=== PATIENT | female | born 1960 | race Caucasian/White ===

== ENCOUNTER → 2024-02-18 12:20 | Outpatient (REF) | payer MEDICARE, OTHER, SELFPAY | LOC: HWRAD 12:20 | PROVIDERS: ATTENDING PHYSICIAN Specialist; FAMILY PHYSICIAN Internal Medicine | DX: N20.1 Calculus of ureter (principal) | CPT/HCPCS: 74176 ==

== ENCOUNTER → 2024-03-05 10:00 | Day surgery (SDC) | payer MEDICARE, OTHER, SELFPAY ==
[2024-03-05 11:33] LABS: Hematocrit 44.8 % (37.0-47.0); Hemoglobin 14.8 g/dL (12.0-16.0); Mean Corpuscular Hgb 29.7 pg (27.0-31.0); Mean Corpuscular Volume 89.8 fL (81.0-99.0); Mean Platelet Volume 10.7 fL (7.4-10.4); Platelet Count 299 10^3/uL (130-400); Red Blood Cell Count 4.99 10^6/uL (4.20-5.40); White Blood Cell Count 7.7 10^3/uL (4.8-10.8)
[2024-03-05 12:26] LABS: Blood Urea Nitrogen 20 mg/dl (7-17); Calcium 9.5 mg/dl (8.4-10.2); Carbon Dioxide 27 mmol/L (22-30); Chloride 100 mmol/L (98-107); Glucose 85 mg/dl (70-99); Potassium 4.4 mmol/L (3.5-5.1); Sodium 137 mmol/L (135-145); eGFR > 60.00
== END ==
LOC: SDSPAT 10:00
PROVIDERS: ATTENDING PHYSICIAN Specialist; FAMILY PHYSICIAN Internal Medicine
DX: Z01.810 Encounter for preprocedural cardiovascular examination (principal); Z01.812 Encounter for preprocedural laboratory examination
CPT/HCPCS: 93005; 36415; 80048; 85027

== ENCOUNTER 2024-03-20 06:34 | Day surgery (SDC) | payer MEDICARE, OTHER, SELFPAY ==
[2024-03-05 12:32] VITALS: BMI 32.6
[2024-03-20] VITALS (11 sets, daily range): BP systolic 139–190; BP diastolic 73–108; BMI 32.6
[2024-03-20] MEDS: DILAUDID 0.25 MG IV (09:38)
[2024-03-20] MEDS: ZOFRAN 4 MG IV (09:58)
[2024-03-20] MEDS: FLOMAX PO (11:34)
[2024-03-20] MEDS: FLOMAX 0.4 MG PO (11:54)
== END 2024-03-20 12:00 | disposition home or self-care (01) ==
LOC: SDS 06:34
PROVIDERS: ATTENDING PHYSICIAN Specialist; FAMILY PHYSICIAN Internal Medicine
DX: N20.0 Calculus of kidney (principal)
CPT/HCPCS: 52356; 74018; 76000; C2617

== ENCOUNTER 2025-03-09 10:38 | Inpatient (IN) | payer MEDICARE, OTHER, SELFPAY ==
[2025-03-09] VITALS (23 sets, daily range): BP systolic 137–187; BP diastolic 68–117; BMI 36.8
--- NOTE | 2025-03-09 04:27 | ED.GENMED ---
History of Present Illness
<Pedro Armstrong DO, Resident - Last Filed: 03/12/25 08:27>
General
Chief Complaint: Flank Pain
Source: patient
Exam Limitations: none
Time Seen by Provider: 03/09/25 04:03
Nursing documentation reviewed up to this point in time: agreed with
History of Present Illness
History of Present Illness:
Vianca Toney is a 64F w/ PMHx nephrolithiasis with most recent episode in March of 2024 treated with right sided ureteroscopy and lithotripsy w/ stenting. Patient states that she started to experience L flank pain at approximately 1800 last
night. The pain is in the left flank and radiates around into the left inguinal area. She originally used a heating pad and Tylenol which helped the pain, but it returned after a couple of hours. Pain is described as constant. States the pain is
similar to past episodes. Also endorses occasional nausea with one episode of small volume vomitus. Denies fevers, abdominal pain, constipation, diarrhea, blood in urine, changes in urinary frequency or recent UTIs.
Past History
<Pedro Armstrong DO, Resident - Last Filed: 03/12/25 08:27>
Past History
ED Past Medical History: None and Other (Migraine headaches, torn meniscus, shoulder tendinitis)
ED Past Surgical History: None
Social History
Tobacco: Non-smoker
Alcohol: None
Family History
Family History: Other (Her mother had a stroke. Her brother of coronary disease)
Review of Systems
<Pedro Armstrong DO, Resident - Last Filed: 03/12/25 08:27>
Review of Systems
Allergies reviewed?: Yes
All Other Systems: ROS reviewed and negative except as documented in HPI and ROS
Phy Exam
<Pedro Armstrong DO, Resident - Last Filed: 03/12/25 08:27>
Physical Exam
Physical Exam:
General: Well developed, well nourished female in moderate discomfort.
HEENT: normocephalic, atraumatic, sclera anicteric, EOMI.
CV: S1,S2 RRR, no m/r/g
Resp: CTAB, no wheezing, rales, rhonchi
Abdomen: soft, nontender to palpation in all 4 quadrants, but mildly tender to palpation in the left inguinal area.
: Left CVA tenderness.
MSK: No clubbing no cyanosis, no edema.
Neuro: Awake, alert, oriented.
Psych: Calm, normal affect.
Scores
<Pedro Armstrong DO, Resident - Last Filed: 03/12/25 08:27>
Heart Failure Risk
Heart Failure Risk Score: Not Applicable
Heart Score for Chest Pain Patients
STEMI patient?: Not applicable
Withdrawal Assessment of Alcohol
Withdrawal Assessment Completed?: Not applicable
Course
<Pedro Armstrong DO, Resident - Last Filed: 03/12/25 08:27>
Orders/Labs/Results
Orders:
Orders
03/09/25 04:49
CT Abd/pel Without Iv Or Oral Urgent
Comment:
Reason For Exam: Left Flank Pain
Ketorolac [Toradol] 15 mg IV NOW STA
03/09/25 04:57
CMP [Comprehensive Metabolic Panel] Urgent
Complete Blood Count/With Diff Urgent
Urinalysis Reflex To Culture Urgent
Date Specimen was Collected: 03/09/25
Time Specimen was Collected: 04:55
Urine Microscopic Reflex Cult Urgent
Urine Culture Urgent
CHANDRA Source: U
Specimen Description:
Date Specimen was Collected: 03/09/25
Time Specimen was Collected: 04:55
03/09/25 08:48
Morphine Sulfate 6 mg IV NOW STA
03/09/25 10:03
CeFAZolin 1 GRAM [Ancef] 1 gram in 5 ml IV NOW
03/09/25 10:21
Admit/Transfer Patient As Directed
Co-Sign Provider:
Level of Care: Inpatient admission
Assign to:: Medical/Surgical
Physician / Group: Gene
Diagnosis: Obstructing left renal stone with intractable pain and GI symptoms
Reason for Hospitalization: See progress note
Expected length of stay greater than two midnights?: Yes
ELOS- Estimated Length of Stay in days: 2
I certify the patient meets the requirements for IP care: Yes
PRN Pain Medication Management As Directed
May give lesser potent ordered pain med per pt: Yes
preference::
Protocol:: Medication orders for pain may be administered in a
manner that supports deferring to patient preference
when the pt is:
- Requesting an ordered lesser potent pain medication.
Least to most potent pain medications are defined
as: acetaminophen < NSAID < tramadol < opioids
(morphine, oxycodone, hydromorphone).
- Requesting a lesser dose of the same medication IF
ORDERED.
- Requesting a less intrusive route of administration
if both routes are prescribed by the provider (PO <
IV).
03/09/25 10:22
Code Status As Directed
Resuscitation Status: Full Code
03/09/25 11:00
Flush (0.9% Sodium Chloride) [Flush (Nss)] See Dose Instructions IV PER PROTOCOL
Abnormal Lab Results
03/09/25
04:57
WBC 11.0 H 10^3/uL
(4.8-10.8)
Absolute Lymphs (auto) 3.6 H 10^3/uL
(1.2-3.4)
Absolute Monos (auto) 0.9 H 10^3/uL
(0.1-0.6)
BUN 21 H mg/dl
(7-17)
Glucose 124 H mg/dl
(70-99)
Total Protein 8.4 H g/dl
(6.3-8.2)
Ur Occult Blood Reflex 4+ A
(Negative)
Urine RBC >100 A /HPF
(0-2)
Urine WBC (Reflex) 11-15 A /HPF
(0-5)
Urine Bacteria (Reflex) Few A
(Negative)
Urine Albumin (Reflex) 2+ A
(Neg - Trace)
03/09/25 04:57
03/09/25 04:57
Vital Signs
Initial and Last Documented VS:
Initial Vital Signs
Temp Pulse Resp BP Pulse Ox
98.7 F 90 22 165/117 97
03/09/25 03:54 03/09/25 03:54 03/09/25 03:54 03/09/25 03:54 03/09/25 03:54
Last Documented Vital Signs
Temp Pulse Resp BP Pulse Ox
97.6 F 96 18 159/86 92
03/09/25 16:30 03/09/25 17:00 03/09/25 17:00 03/09/25 17:00 03/09/25 17:00
<Ortiz Penaloza, DO - Last Filed: 03/09/25 05:32>
Orders/Labs/Results
Orders:
Orders
03/09/25 04:49
CT Abd/pel Without Iv Or Oral Urgent
Comment:
Reason For Exam: Left Flank Pain
Ketorolac [Toradol] 15 mg IV NOW STA
03/09/25 04:57
CMP [Comprehensive Metabolic Panel] Urgent
Complete Blood Count/With Diff Urgent
Urinalysis Reflex To Culture Urgent
Date Specimen was Collected: 03/09/25
Time Specimen was Collected: 04:55
Urine Microscopic Reflex Cult Urgent
Urine Culture Urgent
CHANDRA Source: U
Specimen Description:
Date Specimen was Collected: 03/09/25
Time Specimen was Collected: 04:55
03/09/25 08:48
Morphine Sulfate 6 mg IV NOW STA
03/09/25 10:03
CeFAZolin 1 GRAM [Ancef] 1 gram in 5 ml IV NOW
03/09/25 10:21
Admit/Transfer Patient As Directed
Co-Sign Provider:
Level of Care: Inpatient admission
Assign to:: Medical/Surgical
Physician / Group: Gene
Diagnosis: Obstructing left renal stone with intractable pain and GI symptoms
Reason for Hospitalization: See progress note
Expected length of stay greater than two midnights?: Yes
ELOS- Estimated Length of Stay in days: 2
I certify the patient meets the requirements for IP care: Yes
PRN Pain Medication Management As Directed
May give lesser potent ordered pain med per pt: Yes
preference::
Protocol:: Medication orders for pain may be administered in a
manner that supports deferring to patient preference
when the pt is:
- Requesting an ordered lesser potent pain medication.
Least to most potent pain medications are defined
as: acetaminophen < NSAID < tramadol < opioids
(morphine, oxycodone, hydromorphone).
- Requesting a lesser dose of the same medication IF
ORDERED.
- Requesting a less intrusive route of administration
if both routes are prescribed by the provider (PO <
IV).
03/09/25 10:22
Code Status As Directed
Resuscitation Status: Full Code
03/09/25 11:00
Flush (0.9% Sodium Chloride) [Flush (Nss)] See Dose Instructions IV PER PROTOCOL
Abnormal Lab Results
03/09/25
04:57
WBC 11.0 H 10^3/uL
(4.8-10.8)
Absolute Lymphs (auto) 3.6 H 10^3/uL
(1.2-3.4)
Absolute Monos (auto) 0.9 H 10^3/uL
(0.1-0.6)
BUN 21 H mg/dl
(7-17)
Glucose 124 H mg/dl
(70-99)
Total Protein 8.4 H g/dl
(6.3-8.2)
Ur Occult Blood Reflex 4+ A
(Negative)
Urine RBC >100 A /HPF
(0-2)
Urine WBC (Reflex) 11-15 A /HPF
(0-5)
Urine Bacteria (Reflex) Few A
(Negative)
Urine Albumin (Reflex) 2+ A
(Neg - Trace)
03/09/25 04:57
03/09/25 04:57
Vital Signs
Initial and Last Documented VS:
Initial Vital Signs
Temp Pulse Resp BP Pulse Ox
98.7 F 90 22 165/117 97
03/09/25 03:54 03/09/25 03:54 03/09/25 03:54 03/09/25 03:54 03/09/25 03:54
Last Documented Vital Signs
Temp Pulse Resp BP Pulse Ox
97.6 F 96 18 159/86 92
03/09/25 16:30 03/09/25 17:00 03/09/25 17:00 03/09/25 17:00 03/09/25 17:00
<Nan Young MD - Last Filed: 03/09/25 09:53>
Orders/Labs/Results
Orders:
Orders
03/09/25 04:49
CT Abd/pel Without Iv Or Oral Urgent
Comment:
Reason For Exam: Left Flank Pain
Ketorolac [Toradol] 15 mg IV NOW STA
03/09/25 04:57
CMP [Comprehensive Metabolic Panel] Urgent
Complete Blood Count/With Diff Urgent
Urinalysis Reflex To Culture Urgent
Date Specimen was Collected: 03/09/25
Time Specimen was Collected: 04:55
Urine Microscopic Reflex Cult Urgent
Urine Culture Urgent
CHANDRA Source: U
Specimen Description:
Date Specimen was Collected: 03/09/25
Time Specimen was Collected: 04:55
03/09/25 08:48
Morphine Sulfate 6 mg IV NOW STA
03/09/25 10:03
CeFAZolin 1 GRAM [Ancef] 1 gram in 5 ml IV NOW
03/09/25 10:21
Admit/Transfer Patient As Directed
Co-Sign Provider:
Level of Care: Inpatient admission
Assign to:: Medical/Surgical
Physician / Group: Gene
Diagnosis: Obstructing left renal stone with intractable pain and GI symptoms
Reason for Hospitalization: See progress note
Expected length of stay greater than two midnights?: Yes
ELOS- Estimated Length of Stay in days: 2
I certify the patient meets the requirements for IP care: Yes
PRN Pain Medication Management As Directed
May give lesser potent ordered pain med per pt: Yes
preference::
Protocol:: Medication orders for pain may be administered in a
manner that supports deferring to patient preference
when the pt is:
- Requesting an ordered lesser potent pain medication.
Least to most potent pain medications are defined
as: acetaminophen < NSAID < tramadol < opioids
(morphine, oxycodone, hydromorphone).
- Requesting a lesser dose of the same medication IF
ORDERED.
- Requesting a less intrusive route of administration
if both routes are prescribed by the provider (PO <
IV).
03/09/25 10:22
Code Status As Directed
Resuscitation Status: Full Code
03/09/25 11:00
Flush (0.9% Sodium Chloride) [Flush (Nss)] See Dose Instructions IV PER PROTOCOL
Abnormal Lab Results
03/09/25
04:57
WBC 11.0 H 10^3/uL
(4.8-10.8)
Absolute Lymphs (auto) 3.6 H 10^3/uL
(1.2-3.4)
Absolute Monos (auto) 0.9 H 10^3/uL
(0.1-0.6)
BUN 21 H mg/dl
(7-17)
Glucose 124 H mg/dl
(70-99)
Total Protein 8.4 H g/dl
(6.3-8.2)
Ur Occult Blood Reflex 4+ A
(Negative)
Urine RBC >100 A /HPF
(0-2)
Urine WBC (Reflex) 11-15 A /HPF
(0-5)
Urine Bacteria (Reflex) Few A
(Negative)
Urine Albumin (Reflex) 2+ A
(Neg - Trace)
03/09/25 04:57
03/09/25 04:57
Vital Signs
Initial and Last Documented VS:
Initial Vital Signs
Temp Pulse Resp BP Pulse Ox
98.7 F 90 22 165/117 97
03/09/25 03:54 03/09/25 03:54 03/09/25 03:54 03/09/25 03:54 03/09/25 03:54
Last Documented Vital Signs
Temp Pulse Resp BP Pulse Ox
97.6 F 96 18 159/86 92
03/09/25 16:30 03/09/25 17:00 03/09/25 17:00 03/09/25 17:00 03/09/25 17:00
<Pedro Armstrong DO, Resident - Last Filed: 03/12/25 08:27>
MDM/Problems Addressed
Differential Diagnosis Includes:
Nephrolithiasis, Pyelonephritis, Cystitis, Musculoskeletal Pain
MDM/Problems Addressed:
64F w/ PMHx of nephrolithiasis presenting with left sided flank pain radiating to left inguinal area without fevers or abdominal symptoms. Patient attempted Tylenol at home which did not help and appears to be in moderate discomfort here. Will start
with IV toradol, with low threshold to start opioid pain medication if needed. Will obtain non-con CT abd/pelv and UA w/ reflex.
Pain controlled on Toradol for now. CT scan shows mild left hydronephrosis secondary to 3mm stone in the proximal left ureter. Similarly mild right hydronephrosis secondary to a 6mm stone in the right renal pelvis. WBC 11K. CMP is unremarkable with
Cr at patient's baseline of 0.7.
Awaiting UA, signed out to Dr. Young. Plan to discharge with outpatient urology follow up. Patient provided instruction on pain control and hydration. Return precautions provided.
<Pedro Armstrong DO, Resident - Last Filed: 03/12/25 08:27>
*Pulse Oximetry
SaO2: 97
Oxygen Mode of Delivery: Room air
<Nan Young MD - Last Filed: 03/09/25 09:53>
*Pulse Oximetry
Patient hypoxic: no
*Critical Care Note
Total Time (30-74mins, 75-104mins- exclusive of procedures): Not Applicable
<Nan Young MD - Last Filed: 03/09/25 09:53>
Update Note
Update Note:
9:12 AM patient with continued pain, upon review of patient's CAT scan she has bilateral stones, 1 in the renal pelvis, 1 in the proximal ureter, with bilateral hydro. Urine does not suggest infection and patient is not septic. However, given CT
findings and continued pain, case discussed with Dr. Hodges from urology who recommends admission, Ancef, n.p.o., admit to hospitalist. Hospitalist made aware
ED Attending Note
<Pedro Armstrong DO, Resident - Last Filed: 03/12/25 08:27>
-
Portions of this chart may have been created with voice recognition software.� Occasional wrong word or��sound alike� substitutions may have occurred due to the inherent limitations of voice recognition software.
<Ortiz Penaloza DO - Last Filed: 03/09/25 05:32>
ED Attending Note
Patient seen and examined by attending physician: Yes
I performed a history and physical exam of patient and discussed management with resident, I reviewed resident's note and agree with documented findings and plan of care.: Yes
ED Attending Note:
I agree with Dr. Armstrong's note
64-year-old female presents complaining of left flank pain. Pain is significant. Started suddenly around dinnertime. Has had kidney stones in the past and this feels similar. No fever. She has nausea and has vomited once.
General: Awake, Alert, Oriented X3. Patient peers uncomfortable
Vitals: unremarkable
Head: Atraumatic
Eyes: Pupils equal, EOMI
Throat: Airway intact, no exudates
Neck: Trachea midline
Abd: Soft, Nontender, No pulsatile mass
Back: Left CVA tenderness to percussion
Neuro: Nonfocal
Skin: Warm, dry, no rash nonfocal
Extremities: pulses equal b/l, no edema
CT of the ab pelvis reveals a left ureteral stone. It is of a size that should pass spontaneously. Will provide IV fluids and analgesia here. Expect she will be able to be discharged to follow-up with urology as an outpatient
Discharge Plan
Departure
Patient Disposition: Admit
Date of Disposition: 03/09/25
Time of Disposition: 09:12
Presentation/result/management discussed w/ accepting MD/DO: Hospitalist
Patient with high blood pressure during this ER visit?: Yes
Condition: Good
Discharge Problem:
Bilateral kidney stones, Hydronephrosis concurrent with and due to calculi of kidney and ureter
Interventions
Interventions:
*General Assessment Last Done: 03/09/25 04:57
*Neglect/Abuse Screening Last Done: 03/09/25 04:57
*ED COVID-19 Vaccine History Last Done: 03/09/25 04:57
*ED Influenza Vaccine History Last Done: 03/09/25 04:57
[facility] Fall Risk Assessment Tool Last Done: 03/09/25 04:57
*Risk Screen - Suicide (C-SSRS) Last Done: 03/09/25 03:54
*Nursing Disposition Last Done: 03/09/25 11:10
TP-Dsnzgr-Qbqvjbrinf Assessment Last Done: 03/09/25 05:00
ED-Female Genitourinary Assessment Last Done: 03/09/25 05:00
Discharge Date and Time
Discharge Date/Time: 03/09/25 11:10
[2025-03-09] MEDS: TORADOL 15 MG IV (04:55)
[2025-03-09 05:10] LABS: Hematocrit 43.6 % (37.0-47.0); Hemoglobin 14.8 g/dL (12.0-16.0); Mean Corp Hgb Conc. 33.9 g/dL (33.0-37.0); Mean Corpuscular Volume 86.7 fL (81.0-99.0); Nucleated Red Blood Cells % 0 %; Platelet Count 333 10^3/uL (130-400); Red Cell Dist. Width 13.8 % (11.5-14.5)
[2025-03-09 05:43] LABS: ALT (SGPT) 33 U/L (0-35); AST (SGOT) 30 U/L (14-36); Albumin 4.9 g/dl (3.5-5.0); Alkaline Phosphatase 103 U/L (38-126); Blood Urea Nitrogen 21 mg/dl (7-17); Calcium 9.8 mg/dl (8.4-10.2); Carbon Dioxide 22 mmol/L (22-30); Chloride 102 mmol/L (98-107); Estimated Creatinine Clearance 89 ml/min; Glucose 124 mg/dl (70-99); Potassium 4.3 mmol/L (3.5-5.1); Sodium 137 mmol/L (135-145); Total Protein 8.4 g/dl (6.3-8.2); eGFR > 60.00
[2025-03-09 06:17] LABS: Urine Character Clear (Clear)
[2025-03-09 07:29] LABS: Urine Red Blood Cell >100 /HPF (0-2); Urine Squamous Cell >30 /LPF (Few)
[2025-03-09] MEDS: MORPHINE SULFATE 6 MG IV (10:02)
[2025-03-09] MEDS: ANCEF 5 IV (10:10)
--- NOTE | 2025-03-09 10:25 | HPS.HSE ---
Family Physician
-
Family Physician: Earnest Fontana
Chief Complaint
-
Left flank pain
History of Present Illness
Patient was in her usual state of health until yesterday evening. After dinner she started noticing onset of left sided flank pain which radiated to the left groin. It was intermittent in nature was coming in waves. She tried heating pad and
Tylenol but it was relentless. It made her feel nauseous and threw up small amount of emesis.
With persistent pain she presented to the ER requiring IV pain medication.
Denies any fever or chills. Denies any blood in the urine.
She had a CT of the abdomen pelvis which showed 3 mm obstructing stone in the proximal ureter on the left side which is the symptomatic side. She also has 6 mm partially obstructing right renal pelvis stone.
She has a history of nephrolithiasis and needed intervention to the right ureteral stone in March of this year.
She is being admitted for pain management and urological intervention. With GI symptoms unable to have oral intake.
She denies any primary cardiac or pulmonary disease. Denies any shortness of breath, chest pain, palpitations or dizziness.
No history of hypertension. She feels the blood pressure elevations are secondary to her pain and being in the hospital. She does not take any medication for blood pressure.
Medical History
Past Medical History
Past Medical History: Reports Other (Nephrolithiasis, migraine headache, shoulder tendinitis, torn meniscus)
Past Surgical History: Reports Other (Cystoscopy and right ureteral stone lithotripsy and stent placement)
Social History
Tobacco: Non-smoker
Alcohol: None
Living: With Family
Family History
Family History: Not pertinent
Allergies / Home Medications
Allergies reflects when Allergies were last updated in [facility].
Home Medications with original date entered in [facility]
Allergy/Medication List:
Allergies
Allergy/AdvReac Type Severity Reaction Status Date / Time
iodine Allergy Hives Verified 03/09/25 03:53
Sulfa (Sulfonamide Allergy Itching, Verified 03/09/25 03:53
Antibiotics) swelling,
watery eyes
sulfamethoxazole Allergy Pharmacy Verified 03/09/25 03:53
to Review
trimethoprim Allergy Pharmacy Verified 03/09/25 03:53
to Review
cats Allergy itching, Uncoded 03/09/25 03:53
swelling,
watery eyes
epidural medication Allergy Hives Uncoded 03/09/25 03:53
[id number] - Not Allergy Pharmacy Uncoded 03/09/25 03:53
Converted 85. See Text. to Review
Home Medications
ascorbic acid (vitamin C) 500 mg tablet (Vitamin C) 500 mg PO DAILY 04/16/20
acetaminophen 500 mg tablet 1,000 mg PO Q6H PRN mild pain 03/20/24
tamsulosin 0.4 mg capsule 0.4 mg PO DAILY Nephrolithiasis #14 caps 03/09/25
therapeutic multivitamin 1 tab PO DAILY 03/09/25
Review of Systems
-
A 12 point ROS was completed and negative except as noted: Yes
Physical Exam
Vital Signs
Vital Signs
Temp Pulse Resp BP Pulse Ox
98.7 F 89 11 187/104 94
03/09/25 03:54 03/09/25 06:45 03/09/25 06:45 03/09/25 06:22 03/09/25 06:45
Physical Exam
General: No Apparent Distress
HEENT: Moist mucous membranes
Respiratory: Clear and Non Labored Respirations; No Accessory Resp Muscle Use
Cardiac: S1/S2 and Regular Rhythm; No Tachycardia
GI: Soft, Non Tender, Non Distended and Normal Bowel Sounds
Genito-urinary: Costovertebral angle tend (On the left)
Neuro: AO x 3
Psych: Calm
Laboratory Results
-
03/09/25 04:57
03/09/25 04:57
Laboratory Results
Total Bilirubin 0.5 mg/dl (0.2-1.3) 03/09/25 04:57
AST 30 U/L (14-36) 03/09/25 04:57
ALT 33 U/L (0-35) 03/09/25 04:57
Alkaline Phosphatase 103 U/L (38-126) 03/09/25 04:57
Data Reviewed
-
CT Scan: Report Reviewed by me (CT of abdomen pelvis)
Lab Data: Labs Reviewed by me
Impression/Plan
-
Acute left flank pain secondary to obstructing left ureteral stone.
Mild left renal collecting system dilatation noted.
Pain is intractable requiring IV pain medication.
She is also having GI intolerance for oral intake.
Admit to hospital.
Keep n.p.o. for intervention. Started IV fluids.
Start on pain regimen.
Check urine culture. Clinically not infected without fever, significant leukocytosis. Her symptoms started just yesterday with colicky pain.
Preop Ancef per urology
Right 6 mm partially obstructing calculus in the right renal pelvis but seems to be asymptomatic.
History of nephrolithiasis
Await urology input.
Elevated blood pressure which I suspect is situational
Follow blood pressure reading. No history of hypertension.
Diffuse fatty liver on the CT
LFTs are normal.
Follow with PCP.
--- NOTE | 2025-03-09 10:37 | W.PN.URO.CBU ---
Today's Communication / Plan
-
to op room npo
Assessment / Plan
-
left prox 3mm uretal stone andrt 6mm upj stone will go to op room ig[f stable u scope and remove and stent but if unstable just stent
Diagnosis
-
Date of Service: March 09, 2025
-
Patient Diagnosis:bilateral uretal prox and upj on rt stones with partial obstruction
Post Op Day:
Subjective
-
pain no fever chills
Objective
-
Vital Signs
Temp Pulse Resp BP Pulse Ox
98.7 F 89 11 187/104 94
03/09/25 03:54 03/09/25 06:45 03/09/25 06:45 03/09/25 06:22 03/09/25 06:45
Laboratory Results
03/09/25 04:57
03/09/25 04:57
Review of Systems
-
: Flank Pain
Physical Exam
-
General - well developed, well nourished, no acute distress
Chest - clear bilaterally
Abdomen - soft, non-tender, positive bowel sounds, no CVAT, no incisional pain or distention
Genitalia - normal
Rectal - normal
Skin - warm & dry with no rash
Neuro - AOx3, no motor deficits
Extremities - no clubbing, no cyanosis, no katie
Counseling
-
ti op room
Care Review
Data Reviewed
Discussed with: Hospitalist and Nursing
CT Scan: Image Pers Reviewed
Total Time Spent with Patient (in minutes): decision for siyurgery consente d pros / cons and alt txs discussed with
--- NOTE | 2025-03-09 10:51 | EDCM ---
Reviewed chart and met with pt bedside in ED. Lives with her in [address] [place], [address] [facility].
Independent in ADLs, personal care and ambulation at baseline. No equipment in home.
PMH includes Nephrolithiasis, Migraine
Confirms prescription coverage
No hx HH or SNF
PCP: Earnest Fontana
Pharmacy: [facility]
Anticipate discharge home, no needs. CM will continue to follow.
--- NOTE | 2025-03-09 13:20 | W.SUR.POST ---
Surgical Immediate Post Op
Note
Pre Op Diagnosisbilateral urteteral stones :
Post Op Diagnosis:
same but upj obstruction stricture on rt
Procedure Performedleft ureteroscopy laser baslket on left rt uretoscpy stone maniputaion rgp and bilateral jj stents :
Primary Surgeon: roz
Secondary Surgeons:
Anesthesiagenral :
Estimated Blood Loss: 5
Fluids: nss
Drains/Shunts:bilaterla 4.7 / 24 cm jj stents
Specimens/Cultures:
Doppler/Duplex/Angio (Y/N):
Complications: 0
bilateral stones but narrow rt upj stricte had to stne t left sided stones lasered both sides stented
Operative Findings:
[2025-03-09] MEDS: DILAUDID 0.25 MG IV ×2 (13:41→13:58)
[2025-03-09] MEDS: ZOFRAN 4 MG IV (13:55)
--- NOTE | 2025-03-10 08:19 | W.DCSUMMARY ---
Discharge Summary
Discharge Data
Date of Admission: 03/09/25
Date of Discharge: 03/10/25
-
Pending Results: No
Hospital Course
Primary diagnosis:
Bilateral ureteral stones with bilateral mild renal collecting system dilatation
Secondary diagnosis:
History of nephrolithiasis
Hospital course:
Patient with prior history of nephrolithiasis including obstructing ureteral stone requiring lithotripsy presents with acute left flank pain. CT of the abdomen pelvis shows approximately 3 mm calculus in the left proximal ureter with mild left
renal collecting system dilatation. There is also a 6 mm likely partially obstructing calculus in the right renal pelvis with mild renal collecting system dilatation. Send intractable left flank pain. No fever or chills.
She had GI symptoms of nausea and 1 episode of emesis. White count was mildly elevated at 11. UA showed red cells more than 100 and white cells 11-15.
Unclear if the urine was infected but was given empirical antibiotics.
She went on to have cystoscopy and bilateral ureteral stent placement. She will follow-up with urology for definitive stone management.
She was advised to follow-up with the urologist or call us back for the urine culture report which is pending at the time of discharge. She was discharged home on cefdinir.
Consultants on board:
Urology-Aldair Yap
Portions of this chart may have been created with voice recognition software. Occasional wrong word or 'sound alike' substitutions may have occurred due to the inherent limitations of voice recognition software.
Discharge Plan
-
Patient Disposition: Home (Routine Discharge)
Discharge Diagnosis/Procedures: Left renal colic pain ;BL mildly obstructing ureteral stones s/p cysto and stent placement
Diet: Regular
Activity: As tolerated
Driving Restrictions: No driving while on narcotics
Bathing Restrictions: None
Activity Restrictions/Additional Instructions:
Your urine culture report is pending - call Dr Mueller office or PCP office tomorrow to follow on result and adjust antibiotics
Referrals:
Aldair Mueller MD [Active, Urology]
Referral Note: call Dr Mueller [phone] to arrange next treatment You have stents expect frequency urgency and blood in urine while stent in place. YOU HAD A SCAR RT SIDED URETER THIS WILL NNED TO BE ADDRESSED CALL ANASTACIO TO SET UP
APPT LEFT STONES GONE AND STENTED
Earnest Fontana MD [Family Provider, Internal Medicine] - in less than 1 week
Prescriptions:
New
cefdinir 300 mg capsule
300 mg PO BID Qty: 10 0RF
Continued
ascorbic acid (vitamin C) [Vitamin C] 500 MG tablet
500 mg PO DAILY
acetaminophen 500 mg Tablet
1,000 mg PO Q6H PRN (Reason: mild pain)
therapeutic multivitamin Tablet
1 tab PO DAILY
Discharge Date and Time
Print Language: [id number]
== END 2025-03-09 17:23 | disposition home or self-care (01) | DRG 661 ==
LOC: PACUI 10:38
PROVIDERS: ADMITTING PHYSICIAN Internal Medicine; EMERGENCY PHYSICIAN Emergency Medicine; FAMILY PHYSICIAN Internal Medicine; OTHER PHYSICIAN Specialist
PROC: 0T788DZ Dilation of Bilateral Ureters with Intraluminal Device, Via Natural or Artificial Opening Endoscopic (ICD-10-PCS; 2025-03-09)
PROC: BT1D1ZZ Fluoroscopy of Right Kidney, Ureter and Bladder using Low Osmolar Contrast (ICD-10-PCS; 2025-03-09)
PROC: 0TC78ZZ Extirpation of Matter from Left Ureter, Via Natural or Artificial Opening Endoscopic (ICD-10-PCS; 2025-03-09)
DX: N13.2 Hydronephrosis with renal and ureteral calculous obstruction (principal); N13.1 Hydronephrosis with ureteral stricture, not elsewhere classified; G43.909 Migraine, unspecified, not intractable, without status migrainosus; Z79.899 Other long term (current) drug therapy; Z87.442 Personal history of urinary calculi
CPT/HCPCS: 74176; 74420; 76000; 80053; 81003; 81015; 85025; 87086; 96374; 96375; 99284; C1894; C2617